=== PATIENT | male | born 1995 | race Hispanic/Latino ===

== ENCOUNTER 2017-05-05 08:45 | Emergency (ER) | payer OTHER ==
[2017-05-05 09:31] LABS: Absolute Lymphocytes (CBC) 1.7 K/uL (0.7-4.9); Absolute Monocytes 1.2 K/uL (0.1-1.3); Absolute Neutrophil 16.5 K/uL (1.8-8.0); Basophils % 0.4 % (0-1.3); Eosinophils % 0.1 % (0-4.4); Hematocrit 48.5 % (39.6-49.0); Lymphocytes % 8.6 % (15.3-44.8); MCH 30.4 pg (27.0-35.0); MCV 88.3 fL (80-100); MPV 7.9 fL (7.6-11.3); Monocytes % 6.4 % (3.3-12.3)
[2017-05-05 09:42] LABS: Glomerular Filtration Rate > 60 mL/min (>60)
[2017-05-05 09:45] LABS: Bicarbonate 27 mEq/L (21-31); Glucose Level 131 mg/dL (65-120); Lipase 14 U/L (22-51); Potassium 3.8 mEq/L (3.6-5.0); Sodium Level 135 mEq/L (135-145)
[2017-05-05] MEDS ORDERED: NA CHLORIDE 0.9% 1,000 ML ONE ×2 (09:50→11:42)
[2017-05-05] MEDS ORDERED: ONDANSETRON 4 MG (ODT) TAB ONE (09:50)
[2017-05-05] MEDS ORDERED: FAMOTIDINE 20 MG/2 ML VIAL IV ONE (09:50)
[2017-05-05 09:52] LABS: ALT/SGPT 84 IU/L (10-60); AST/SGOT 29 IU/L (10-42); Albumin 4.5 g/dL (3.2-5.5); Alkaline Phosphatase 76 IU/L (42-121); Amylase Level 71 U/L (28-100); BUN Blood Urea Nitrogen 11 mg/dL (6-20); Bilirubin Direct 0.2 mg/dL (0-0.2); Bilirubin Total 1.3 mg/dL (0.3-1.2); Creatine Phosphokinase 59 IU/L (22-269); Glomerular Filtration Rate > 90 mL/min (=/>90); Protein, Total 7.9 g/dL (6.0-8.3)
[2017-05-05 09:54] LABS: CKMB Creatine Kinase MB 1.2 ng/ml (0.3-4.0)
[2017-05-05 11:03] LABS: Urine Blood NEGATIVE (NEG); Urine Glucose NEGATIVE (NEG); Urine Protein 2+ (NEG); Urine Specific Gravity 1.025 (1.005-1.030); Urine pH 6.5 (5.0-7.0)
--- NOTE | 2017-05-05 11:18 | RAD REPORT ---
EXAM DESCRIPTION: [facility]05/05/2017 10:29 am CLINICAL HISTORY: Cough COMPARISON: None FINDINGS: The lungs appear clear of acute infiltrate. The heart is normal size IMPRESSION: No acute abnormalities displayed
[2017-05-05 11:40] LABS: Urine Amorphous Sediment TRACE /HPF (NONE SEEN); Urine Bacteria <20 /HPF (NONE SEEN); Urine Culture Reflex Order NOT NEEDED; Urine Mucus 3+ /HPF (NONE SEEN); Urine RBC <5 /HPF (NONE SEEN)
[2017-05-05] MEDS ORDERED: LIDOCAINE VISCOUS 2% SOLN 15 ML UDC ONE (12:21)
[2017-05-05] MEDS ORDERED: MAGNE/ALUM HYDROXD 30 ML UCUP ONE (12:21)
--- NOTE | 2017-05-05 12:26 | EDPHYS ---
Physician Documentation [facility] Name: Ania Hayes III Age: 21 yrs Sex: Male : 1995 Arrival Date: 05/05/2017 Time: 08:50 Bed 15 Private MD: ED Physician Antoine Mcintyre HPI: 05/05 09:05 This 21 yrs old Male presents to ER via Ambulatory with complaints of cp Weakness, Vomiting, Sore Throat. 09:05 The patient presents to the emergency department with weakness of the entire body, cp generalized weakness, that is mild. 09:05 Onset: The symptoms/episode began/occurred this morning. cp 09:05 Associated signs and symptoms: Pertinent positives: headache, sore throat, cough, cp nausea and vomiting, Pertinent negatives: neck stiffness, paresthesias, chest pain, abdominal pain. Severity of symptoms: in the emergency department the symptoms are unchanged despite home interventions. Patient's baseline: Neuro: alert and fully oriented, Motor: no deficits, Ambulation: walks without assistance, Speech: normal. Historical: - Allergies: 08:53 Amoxicillin; lk1 - PMHx: 08:53 None; lk1 - PSHx: 08:53 None; lk1 - Immunization history:: Adult Immunizations up to date. - Social history:: Smoking status: Patient/guardian denies using tobacco. ROS: 09:15 Constitutional: Positive for body aches, chills, poor PO intake, Negative for fever. cp 09:15 Eyes: Negative for injury, pain, redness, and discharge. cp 09:15 ENT: Positive for sore throat, Negative for drainage from ear(s), ear pain, rhinorrhea, cp difficulty swallowing, difficulty handling secretions. 09:15 Neck: Negative for pain with movement, pain at rest, stiffness. 09:15 Cardiovascular: Negative for chest pain, edema, palpitations. 09:15 Respiratory: Positive for cough, Negative for shortness of breath, wheezing. 09:15 Abdomen/GI: Positive for nausea, vomiting, Negative for abdominal pain, diarrhea, constipation, black/tarry stool, rectal bleeding. 09:15 Back: Negative for pain at rest, pain with movement, radiated pain. 09:15 : Negative for urinary symptoms. 09:15 Skin: Negative for cellulitis, rash. 09:15 Neuro: Positive for headache, general weakness, Negative for altered mental status, dizziness, gait disturbance, numbness, syncope. 09:15 All other systems are negative. Exam: 09:22 Constitutional: The patient appears in no acute distress, alert, awake, cp non-diaphoretic, non-toxic, well developed, well nourished. 09:22 Head/Face: Normocephalic, atraumatic. Eyes: Pupils equal round and reactive to light, cp extra-ocular motions intact. Lids and lashes normal. Conjunctiva and sclera are non-icteric and not injected. Cornea within normal limits. Periorbital areas with no swelling, redness, or edema. 09:22 ENT: External ear(s): are unremarkable, Ear canal(s): are normal, clear, TM's: bulging, cp is not appreciated, bilaterally, dullness, bilaterally, erythema, is not appreciated, bilaterally, Nose: is normal, Mouth: Lips: moist, Oral mucosa: moist, Posterior pharynx: Airway: no evidence of obstruction, patent, Tonsils: mild erythema, no enlargement, no exudate, Uvula: midline, non-edematous, no erythema, swelling, is not appreciated, erythema, that is mild, exudate, is not appreciated, Voice: is normal. 09:22 Neck: ROM/movement: is normal, is supple, without pain, no range of motions limitations, no meningismus, no nuchal rigidity, Lymph nodes: no appreciated lymphadenopathy. 09:22 Chest/axilla: Inspection: normal, Palpation: is normal, no crepitus, no tenderness. 09:22 Cardiovascular: Rate: tachycardic, Rhythm: regular, Pulses: Pulses are 2+ in right radial artery and left radial artery. Edema: is not appreciated, JVD: is not appreciated. 09:22 Respiratory: the patient does not display signs of respiratory distress, Respirations: normal, no use of accessory muscles, no retractions, no splinting, no tachypnea, labored breathing, is not present, Breath sounds: are clear throughout, no decreased breath sounds, no stridor, no wheezing. 09:22 Abdomen/GI: Inspection: abdomen appears normal, Bowel sounds: active, all quadrants, Palpation: abdomen is soft and non-tender, in all quadrants, rebound tenderness, is not appreciated, voluntary guarding, is not appreciated, involuntary guarding, is not appreciated. 09:22 Back: pain, is absent, ROM is normal. 09:22 Skin: cellulitis, is not appreciated, no rash present. 09:22 Neuro: Orientation: to person, place \T\ time. Mentation: lucid, able to follow commands, Cerebellar function: is grossly normal, Motor: moves all fours, strength is normal, Sensation: no obvious gross deficits. Vital Signs: 08:53 BP 140 / 69; Pulse 108; Resp 14; Temp 97.8(TE); Pulse Ox 98% on R/A; Weight 108.86 kg lk1 (R); Height 5 ft. 8 in. (172.72 cm) (R); 09:22 BP 136 / 81; Pulse 102; Resp 14; Pulse Ox 99% on R/A; Pain 8/10; ch 10:16 BP 113 / 55; Pulse 113; Resp 16; Pulse Ox 98% on R/A; mh5 11:14 BP 118 / 43; Pulse 103; Resp 15; Pulse Ox 99% on R/A; mh5 12:53 BP 120 / 61; Pulse 98; Resp 14; Temp 98.3; Pulse Ox 99% on R/A; Pain 0/10; ch 08:53 Body Mass Index 36.49 (108.86 kg, 172.72 cm) lk1 MDM: 08:58 Patient medically screened. cp 12:25 Data reviewed: vital signs, nurses notes, lab test result(s), radiologic studies, plain cp films. 12:25 Test interpretation: by ED physician or midlevel provider: ECG, plain radiologic cp studies. Response to treatment: the patient's symptoms have markedly improved after treatment, and as a result, I will discharge patient. 12:25 ED course: VSS. Symptoms improved with IV fluids and meds. Patient tolerating po cp fluids. Will discharge to home for continued monitoring. 05/05 09:01 Order name: Flu; Complete Time: 09:53 ch 05/05 09:01 Order name: Strep; Complete Time: 09:53 ch 05/05 09:15 Order name: Amylase, Serum; Complete Time: 10:09 cp 05/05 09:15 Order name: Basic Metabolic Panel; Complete Time: 09:55 cp 05/05 09:54 Interpretation: Normal except: CL 100; GLUC 131. cp 05/05 09:15 Order name: CBC with Diff; Complete Time: 09:53 cp 05/05 09:54 Interpretation: Normal except: WBC 19.5; RBC 5.50; SARAI% 84.5; LYM% 8.6; NEUT A 16.5. cp 05/05 09:15 Order name: Creatinine for Radiology; Complete Time: 09:53 cp 05/05 09:15 Order name: Hepatic Function; Complete Time: 09:56 cp 05/05 09:56 Interpretation: Normal except: SGPT 84; BILIT 1.3. cp 05/05 09:15 Order name: Lipase; Complete Time: 09:57 cp 05/05 09:57 Interpretation: Abnormal: LIP 14. 05/05 09:15 Order name: Urine Microscopic Only; Complete Time: 12:24 05/05 09:15 Order name: Ckmb; Complete Time: 10:09 cp 05/05 09:15 Order name: CK; Complete Time: 10:09 05/05 09:15 Order name: [place] Screen Profile; Complete Time: 10:28 cp 05/05 10:28 Interpretation: Reviewed. 05/05 09:43 Order name: Throat Culture EDMS 05/05 10:17 Order name: Urine Dipstick--Ancillary (enter results); Complete Time: 11:33 bd 05/05 11:34 Interpretation: UPROT 2+; Reviewed. 05/05 09:15 Order name: IV Saline Lock; Complete Time: 09:29 cp 05/05 09:15 Order name: Labs collected and sent; Complete Time: 09:29 cp 05/05 09:15 Order name: Urine Dipstick-Ancillary (obtain specimen); Complete Time: 11:59 cp 05/05 10:10 Order name: XRAY Chest (1 view); Complete Time: 11:33 cp 05/05 11:02 Order name: PO challenge; Complete Time: 11:35 cp Administered Medications: 09:25 Drug: NS 0.9% 1000 ml Route: IV; Rate: 1 bolus; Site: right antecubital; ch 12:56 Follow up: IV Status: Completed infusion; IV Intake: 1000ml ch 09:25 Drug: Pepcid 20 mg Route: IVP; Site: right antecubital; ch 11:35 Follow up: Response: No adverse reaction ch 09:48 Drug: Zofran 4 mg Route: PO; 11:59 Follow up: Response: No adverse reaction; Marked relief of symptoms 11:21 Drug: NS 0.9% 1000 ml Route: IV; Rate: 1 bolus; Site: right antecubital; ch 11:58 Follow up: IV Status: Completed infusion 12:08 Drug: GI Cocktail without - (Maalox Suspension 30 ml, Lidocaine Liquid 2 % 15 ch ml) Route: PO; 12:55 Follow up: Response: No adverse reaction; Marked relief of symptoms Disposition: 18:21 Co-signature as Attending Physician, Antoine Mcintyre MD. rn Disposition: 05/05/17 12:25 Discharged to Home. Impression: Nausea and vomiting, Cough, Acute pharyngitis. - Condition is Stable. - Discharge Instructions: Nausea and Vomiting, Pharyngitis, Cough, Adult. - Prescriptions for Pepcid 20 mg Oral Tablet - take 1 tablet by ORAL route every 12 hours for 10 days; 20 tablet. Tessalon Perles 100 mg Oral Capsule - take 1 capsule by ORAL route every 8 hours As needed; 15 capsule. promethazine 25 mg Oral Tablet - take 1 tablet by ORAL route every 6 hours As needed; 20 tablet. - Work release form, Family Work Release, Medication Reconciliation Form, Thank You Letter, Antibiotic Education, Prescription Opioid Use form. - Follow up: Private Physician; When: 1 - 2 days; Reason: Recheck today's complaints. - Problem is new. - Symptoms have improved. Signatures: Dispatcher [employer] Brittney Garcia RN RN Antoine Mcintyre MD MD rn Page, Corey, PA PA cp Kluge, Leah, RN RN lk1
--- NOTE | 2017-05-05 12:26 | ER ---
Nurse's Notes [facility] Name: Ania Hayes III Age: 21 yrs Sex: Male : 1995 Arrival Date: 05/05/2017 Time: 08:50 Bed 15 Private MD: Diagnosis: Nausea and vomiting;Cough;Acute pharyngitis Presentation: 05/05 08:52 Presenting complaint: Patient states: "My throat hurts and I have a cough. I can't keep lk1 anything down. I feel weak and tired.". Transition of care: patient was not received from another setting of care. Onset of symptoms was April 21, 2017. Care prior to arrival: None. 08:52 Method Of Arrival: Ambulatory lk1 08:52 Acuity: DENNY 3 lk1 Historical: - Allergies: 08:53 Amoxicillin; lk1 - PMHx: 08:53 None; lk1 - PSHx: 08:53 None; lk1 - Immunization history:: Adult Immunizations up to date. - Social history:: Smoking status: Patient/guardian denies using tobacco. Screenin:22 Abuse screen: Denies threats or abuse. Denies injuries from another. Nutritional ch screening: No deficits noted. Tuberculosis screening: No symptoms or risk factors identified. Fall Risk None identified. Assessment: 09:22 General: Appears in no apparent distress. uncomfortable, Behavior is calm, cooperative, ch appropriate for age. Pain: Complains of pain in head, right arm, left arm, right leg and left leg Pain currently is 8 out of 10 on a pain scale. at worst was 10 out of 10 on a pain scale. Neuro: No deficits noted. Cardiovascular: Heart tones S1 S2 present. Respiratory: Reports cough that is dry, hacking, Airway is patent Respiratory effort is even, unlabored, Breath sounds are clear bilaterally. pt c/o coughing so hard he vomits. GI: Abdomen is obese, Bowel sounds present X 4 quads. Abd is soft and non tender X 4 quads. Reports nausea, vomiting. GI: Reports diarrhea. : No signs and/or symptoms were reported regarding the genitourinary system. EENT: Reports nasal congestion. Derm: Skin is pink, warm \\T\\ dry. 10:30 Reassessment: Patient appears in no apparent distress at this time. No changes from ch previously documented assessment. 11:59 Reassessment: Patient appears in no apparent distress at this time. Patient and/or ch family updated on plan of care and expected duration. Pain level reassessed. Patient is alert, oriented x 3, equal unlabored respirations, skin warm/dry/pink. Patient states feeling better. Patient states symptoms have improved. 12:09 Reassessment: Patient appears in no apparent distress at this time. Patient and/or ch family updated on plan of care and expected duration. Pain level reassessed. Patient is alert, oriented x 3, equal unlabored respirations, skin warm/dry/pink. 12:53 Reassessment: Patient appears in no apparent distress at this time. Patient and/or ch family updated on plan of care and expected duration. Pain level reassessed. Patient is alert, oriented x 3, equal unlabored respirations, skin warm/dry/pink. Patient states feeling better. Patient states symptoms have improved. Vital Signs: 08:53 BP 140 / 69; Pulse 108; Resp 14; Temp 97.8(TE); Pulse Ox 98% on R/A; Weight 108.86 kg lk1 (R); Height 5 ft. 8 in. (172.72 cm) (R); 09:22 BP 136 / 81; Pulse 102; Resp 14; Pulse Ox 99% on R/A; Pain 8/10; ch 10:16 BP 113 / 55; Pulse 113; Resp 16; Pulse Ox 98% on R/A; mh5 11:14 BP 118 / 43; Pulse 103; Resp 15; Pulse Ox 99% on R/A; mh5 12:53 BP 120 / 61; Pulse 98; Resp 14; Temp 98.3; Pulse Ox 99% on R/A; Pain 0/10; ch 08:53 Body Mass Index 36.49 (108.86 kg, 172.72 cm) lk1 ED Course: 08:50 Patient arrived in ED. mr 08:53 Triage completed. lk1 08:53 Arm band placed on right wrist. lk1 08:58 Roberto Narayanan PA is PHCP. cp 08:58 Antoine Mcintyre MD is Attending Physician. cp 09:01 Brittney Douglas, JEFF is Primary Nurse. ch 09:22 No apparent distress. Resting quietly. ch 09:22 Patient has correct armband on for positive identification. Placed in gown. Bed in low ch position. Call light in reach. Side rails up X 1. Adult w/ patient. Pulse ox on. NIBP on. 09:22 No provider procedures requiring assistance completed. Inserted saline lock: 20 gauge ch in right antecubital area, using aseptic technique. Blood collected. 10:29 XRAY Chest (1 view) In Process Unspecified. EDMS 10:31 X-ray completed. Portable x-ray completed in exam room. kw1 12:53 No apparent distress. Resting quietly. ch 12:53 IV discontinued, intact, bleeding controlled, No redness/swelling at site. Pressure ch dressing applied. Administered Medications: 09:25 Drug: NS 0.9% 1000 ml Route: IV; Rate: 1 bolus; Site: right antecubital; ch 12:56 Follow up: IV Status: Completed infusion; IV Intake: 1000ml ch 09:25 Drug: Pepcid 20 mg Route: IVP; Site: right antecubital; ch 11:35 Follow up: Response: No adverse reaction ch 09:48 Drug: Zofran 4 mg Route: PO; ch 11:59 Follow up: Response: No adverse reaction; Marked relief of symptoms ch 11:21 Drug: NS 0.9% 1000 ml Route: IV; Rate: 1 bolus; Site: right antecubital; ch 11:58 Follow up: IV Status: Completed infusion ch 12:08 Drug: GI Cocktail without - (Maalox Suspension 30 ml, Lidocaine Liquid 2 % 15 ch ml) Route: PO; 12:55 Follow up: Response: No adverse reaction; Marked relief of symptoms ch Intake: 12:56 IV: 1000ml; Total: 1000ml. ch Outcome: 12:25 Discharge ordered by MD. cp 12:53 Discharged to home ambulatory, with family. ch 12:53 Condition: improved 12:53 Discharge instructions given to patient, family, Instructed on discharge instructions, follow up and referral plans. medication usage, Demonstrated understanding of instructions, follow-up care, medications, Prescriptions given X 3. 12:56 Patient left the ED. ch Signatures: Dispatcher [employer] EDMS Brittney Douglas RN RN ch Rivera, Maria mr Page, Corey, Niki Gibbs cp, RN RN 1 Juli Diallo [facility] Maite Reyes 1
== END 2017-05-05 12:56 | disposition home or self-care (01) ==
LOC: ER 08:45
DX: Z88.0 Allergy status to penicillin; R05 Cough; J02.9 Acute pharyngitis, unspecified
CPT/HCPCS: 36415; 71045; 80048; 80076; 81003; 81015; 82150; 82550; 82553; 83690; 85025; 86308; 87070; 87081; 87804; 96361; 96374; 99284; J7030

== ENCOUNTER 2017-05-07 11:43 | Emergency (ER) | payer OTHER ==
--- NOTE | 2017-05-07 13:29 | EDPHYS ---
Physician Documentation [facility] Name: Ania Hayes III Age: 21 yrs Sex: Male : 1995 Arrival Date: 05/07/2017 Time: 11:43 Bed 26 Private MD: ED Physician Yuval Crabtree HPI: 05/07 15:31 This 21 yrs old Male presents to ER via Ambulatory with complaints of Sore gs Throat, Headache. 15:31 This 21 yrs old Male presents to ER via Ambulatory with complaints of Sore gs Throat, Headache. 15:31 The patient presents with sore throat. Onset: The symptoms/episode began/occurred 5 gs day(s) ago. Severity of symptoms: At their worst the symptoms were moderate, in the emergency department the symptoms are unchanged. Modifying factors: the symptoms are aggravated by swallowing. Associated signs and symptoms: Pertinent positives: fever. The patient has experienced a previous episode. The patient has been recently seen at the [facility] Emergency Department, this week. Historical: - Allergies: 12:23 Amoxicillin; aj - Home Meds: 12:23 None [Active]; aj - PMHx: 12:23 None; aj - PSHx: 12:23 None; aj - Immunization history:: Adult Immunizations up to date. - Social history:: Smoking status: Patient/guardian denies using tobacco. ROS: 15:31 All other systems are negative. gs Exam: 15:31 Head/Face: Normocephalic, atraumatic. Eyes: Pupils equal round and reactive to light, gs extra-ocular motions intact. Lids and lashes normal. Conjunctiva and sclera are non-icteric and not injected. Cornea within normal limits. Periorbital areas with no swelling, redness, or edema. Neck: Trachea midline, no thyromegaly or masses palpated, and no cervical lymphadenopathy. Supple, full range of motion without nuchal rigidity, or vertebral point tenderness. No Meningismus. Chest/axilla: Normal chest wall appearance and motion. Nontender with no deformity. No lesions are appreciated. Cardiovascular: Regular rate and rhythm with a normal S1 and S2. No gallops, murmurs, or rubs. Normal PMI, no JVD. No pulse deficits. Respiratory: Lungs have equal breath sounds bilaterally, clear to auscultation and percussion. No rales, rhonchi or wheezes noted. No increased work of breathing, no retractions or nasal flaring. Abdomen/GI: Soft, non-tender, with normal bowel sounds. No distension or tympany. No guarding or rebound. No evidence of tenderness throughout. Back: No spinal tenderness. No costovertebral tenderness. Full range of motion. Skin: Warm, dry with normal turgor. Normal color with no rashes, no lesions, and no evidence of cellulitis. MS/ Extremity: Pulses equal, no cyanosis. Neurovascular intact. Full, normal range of motion. Neuro: Awake and alert, GCS 15, oriented to person, place, time, and situation. Cranial nerves II-XII grossly intact. Motor strength 5/5 in all extremities. Sensory grossly intact. Cerebellar exam normal. Normal gait. 15:31 Constitutional: The patient appears alert, awake. 15:31 ENT: Posterior pharynx: swelling, that is mild, erythema, that is moderate. 15:31 ENT: Voice: is normal. 15:31 Respiratory: Breath sounds: stridor, is not appreciated. Vital Signs: 12:23 BP 129 / 78; Pulse 84; Resp 17; Temp 97.7; Pulse Ox 97% on R/A; Weight 108.86 kg; aj Height 5 ft. 8 in. (172.72 cm); Pain 8/10; 12:23 Body Mass Index 36.49 (108.86 kg, 172.72 cm) aj MDM: 13:24 Patient medically screened. 15:31 Differential diagnosis: group A strep tonsillitis, pharyngitis, upper respiratory gs infection. Data reviewed: vital signs, nurses notes. Response to treatment: the patient's symptoms have mildly improved after treatment, and as a result, I will discharge patient. 05/07 12:25 Order name: Strep 05/07 12:26 Order name: Group A Streptococcus Rapid Sc; Complete Time: 13:17 EDMS 05/07 12:53 Order name: Throat Culture EDMS Administered Medications: No medications were administered Disposition: 05/07/17 13:29 Discharged to Home. Impression: Streptococcal pharyngitis. - Condition is Stable. - Discharge Instructions: Pharyngitis, Strep Throat. - Prescriptions for Zithromax Z- Luis 250 mg Oral Tablet - take 1 tablet by ORAL route as directed for 5 days Day 1 - take two (2) tablets one time. Day 2, 3, 4 , 5 take one (1) tablet once daily.; 6 tablet. - Medication Reconciliation Form, Thank You Letter, Antibiotic Education, Prescription Opioid Use, Work release form form. - Follow up: Private Physician; When: 2 - 3 days; Reason: Re-evaluation by your physician. Signatures: Dispatcher [employer] Kylie Koehler RN Yuval James MD MD gs Maty Hugo RN RN kr2
--- NOTE | 2017-05-07 13:29 | ER ---
Nurse's Notes [facility] Name: nAia Hayes III Age: 21 yrs Sex: Male : 1995 Arrival Date: 05/07/2017 Time: 11:43 Bed 26 Private MD: Diagnosis: Streptococcal pharyngitis Presentation: 05/07 12:22 Presenting complaint: Patient states: Reports sore throat. Tonsils red and enlarged aj bilaterally. Transition of care: patient was not received from another setting of care. Onset of symptoms was May 04, 2017. Care prior to arrival: None. 12:22 Method Of Arrival: Ambulatory 12:22 Acuity: DENNY 4 aj Triage Assessment: 12:23 General: Appears in no apparent distress. comfortable, Behavior is calm, cooperative, aj appropriate for age. Pain: Complains of pain in left aspect of posterior pharynx and right aspect of posterior pharynx Pain currently is 8 out of 10 on a pain scale. EENT: Throat is reddened has enlarged tonsils bilaterally Reports pain when swallowing. Respiratory: Airway is patent Respiratory effort is even, unlabored, Respiratory pattern is regular, symmetrical. Derm: Skin is intact, is healthy with good turgor, Skin is pink, warm \T\ dry. normal. Historical: - Allergies: 12:23 Amoxicillin; aj - Home Meds: 12:23 None [Active]; aj - PMHx: 12:23 None; aj - PSHx: 12:23 None; aj - Immunization history:: Adult Immunizations up to date. - Social history:: Smoking status: Patient/guardian denies using tobacco. Screenin:58 Abuse screen: Denies threats or abuse. Denies injuries from another. Nutritional kr2 screening: No deficits noted. Tuberculosis screening: No symptoms or risk factors identified. Fall Risk None identified. Assessment: 13:30 General: Appears in no apparent distress. comfortable, well groomed, well developed, kr2 well nourished, Behavior is calm, cooperative, appropriate for age. Pain: Complains of pain in throat Pain does not radiate. Pain currently is 3 out of 10 on a pain scale. Quality of pain is described as tender. Neuro: Level of Consciousness is awake, alert, obeys commands, Oriented to person, place, time, situation, Appropriate for age. Cardiovascular: Capillary refill < 3 seconds in bilateral fingers Patient's skin is warm and dry. Respiratory: Airway is patent Respiratory effort is even, unlabored, Respiratory pattern is regular, symmetrical, Breath sounds are clear bilaterally. GI: Abdomen is flat, non-distended. : No signs and/or symptoms were reported regarding the genitourinary system. EENT: Throat is reddened. Derm: Skin is intact, is healthy with good turgor, Skin is pink, warm \T\ dry. Vital Signs: 12:23 BP 129 / 78; Pulse 84; Resp 17; Temp 97.7; Pulse Ox 97% on R/A; Weight 108.86 kg; aj Height 5 ft. 8 in. (172.72 cm); Pain 8/10; 12:23 Body Mass Index 36.49 (108.86 kg, 172.72 cm) ED Course: 11:43 Patient arrived in ED. as 12:23 Triage completed. aj 12:23 Arm band placed on right wrist. Patient placed in waiting room, Patient notified of wait time. Labs ordered per protocol. 13:16 Lauren Dur[facility]-C is [facility]. kb 13:16 Yuval Crabtree MD is Attending Physician. kb 13:43 Maty Hugo, JEFF is Primary Nurse. kr2 13:58 Patient has correct armband on for positive identification. Bed in low position. Call kr2 light in reach. Side rails up X 1. Pulse ox on. NIBP on. Door closed. Warm blanket given. Head of bed elevated. 13:59 No provider procedures requiring assistance completed. Patient did not have IV access kr2 during this emergency room visit. Administered Medications: No medications were administered Outcome: 13:29 Discharge ordered by . 13:59 Discharged to home ambulatory, with friend. kr2 13:59 Condition: good 13:59 Discharge instructions given to patient, Instructed on discharge instructions, follow up and referral plans. medication usage, Demonstrated understanding of instructions, follow-up care, medications, Prescriptions given X 1. 14:00 Patient left the ED. kr2 Signatures: Lauren Durán FNP-C FNP-Ckb Myers, Amanda, RN RN aj Martinez, Amelia as Yuval Crabtree MD MD Maty Hugo RN RN kr2
== END 2017-05-07 14:00 | disposition home or self-care (01) ==
LOC: ER 11:43
DX: J02.0 Streptococcal pharyngitis (principal); Z88.0 Allergy status to penicillin
CPT/HCPCS: 87070; 87081; 99283

== ENCOUNTER 2017-06-01 08:54 | Emergency (ER) | payer OTHER ==
[2017-06-01] MEDS ORDERED: IBUPROFEN 200 MG TAB PO ONE (11:25)
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
== END 2017-06-01 12:36 | disposition home or self-care (01) ==
LOC: ER 08:54
DX: S13.4XXA Sprain of ligaments of cervical spine, initial encounter (principal); S30.1XXA Contusion of abdominal wall, initial encounter; V49.49XA Driver injured in collision with other motor vehicles in traffic accident, initial encounter; Z88.1 Allergy status to other antibiotic agents
CPT/HCPCS: 70450; 71250; 72125; 99284

== ENCOUNTER 2017-06-18 14:25 | Emergency (ER) | payer OTHER ==
--- NOTE | 2017-06-18 15:23 | ER ---
Nurse's Notes [facility] Name: Ania Hayes III Age: 21 yrs Sex: Male : 1995 Arrival Date: 06/18/2017 Time: 14:28 Bed 10 Private MD: Diagnosis: Muscle spasm of back Presentation: 06/18 14:39 Presenting complaint: Patient states: Lower back pain for 2 weeks, seen in this ER for aj same complaint. Set appointment for follow up with PCP for next week. Transition of care: patient was not received from another setting of care. Onset of symptoms was June 01, 2017. Initial Sepsis Screen: Does the patient meet any 2 criteria? No. Patient's initial sepsis screen is negative. Does the patient have a suspected source of infection? No. Patient's initial sepsis screen is negative. Care prior to arrival: None. 14:39 Method Of Arrival: Ambulatory aj 14:39 Acuity: DENNY 5 aj Triage Assessment: 14:40 General: Appears in no apparent distress. comfortable, Behavior is calm, cooperative, aj appropriate for age. Pain: Complains of pain in low back area and mid back area Pain currently is 10 out of 10 on a pain scale. Neuro: Level of Consciousness is awake, alert, obeys commands, Oriented to person, place, time, situation, Appropriate for age. Respiratory: Airway is patent Respiratory effort is even, unlabored, Respiratory pattern is regular, symmetrical. Derm: Skin is intact, is healthy with good turgor, Skin is pink, warm \T\ dry. normal. Musculoskeletal: Circulation, motion, and sensation intact. Range of motion: intact in all extremities. Historical: - Allergies: 14:40 Amoxicillin; aj - Home Meds: 14:40 None [Active]; aj - PMHx: 14:40 None; aj - PSHx: 14:40 None; aj - Immunization history:: Adult Immunizations up to date. - Social history:: Smoking status: Patient/guardian denies using tobacco. Screenin:46 Abuse screen: Denies threats or abuse. Denies injuries from another. Nutritional ed1 screening: No deficits noted. Tuberculosis screening: No symptoms or risk factors identified. Fall Risk None identified. Assessment: 14:46 General: Appears in no apparent distress. Behavior is calm, cooperative. Pain: ed1 Complains of pain in mid back area and low back area Pain does not radiate. Pain currently is 10 out of 10 on a pain scale. Quality of pain is described as aching, Pain began over 1 week ago Is continuous. Neuro: Level of Consciousness is awake, alert, obeys commands, Oriented to person, place, time, situation, Crime Victim Specialist are equal bilaterally Moves all extremities. Full function Gait is steady. Cardiovascular: Denies chest pain, Heart tones S1 S2 present. Respiratory: Airway is patent Respiratory effort is even, unlabored, Respiratory pattern is regular, symmetrical, Breath sounds are clear bilaterally. GI: No signs and/or symptoms were reported involving the gastrointestinal system. : No signs and/or symptoms were reported regarding the genitourinary system. EENT: No signs and/or symptoms were reported regarding the EENT system. Derm: Skin is intact, is healthy with good turgor, Skin is pink, warm \T\ dry. Musculoskeletal: Circulation, motion, and sensation intact. Range of motion: intact in all extremities, Reports pain in mid back area and low back area. 14:46 Reassessment: I agree with assessment completed by RICK Marks . aa5 15:32 Reassessment: Patient appears in no apparent distress at this time. No changes from ed1 previously documented assessment. Patient and/or family updated on plan of care and expected duration. Pain level reassessed. Patient is alert, oriented x 3, equal unlabored respirations, skin warm/dry/pink. Patient states symptoms have not improved. Vital Signs: 14:40 BP 132 / 69; Pulse 81; Resp 16; Temp 98.6; Pulse Ox 98% on R/A; Weight 108.86 kg; aj Height 5 ft. 8 in. (172.72 cm); Pain 10/10; 15:32 BP 132 / 85; Pulse 66; Resp 17; Pulse Ox 100% on R/A; Pain 10/10; ed1 14:40 Body Mass Index 36.49 (108.86 kg, 172.72 cm) aj ED Course: 14:28 Patient arrived in ED. sb2 14:40 Triage completed. aj 14:40 Arm band placed on right wrist. Patient placed in an exam room. aj 14:44 Gabriele Londono NP is PHCP. pm1 14:44 Roberto Arce MD is Attending Physician. pm1 14:46 Selina Danielle LVN is Primary Nurse. ed1 14:46 Patient has correct armband on for positive identification. Call light in reach. ed1 15:32 No provider procedures requiring assistance completed. Patient did not have IV access ed1 during this emergency room visit. Administered Medications: No medications were administered Outcome: 15:23 Discharge ordered by MD. pm1 15:32 Discharged to home ambulatory. ed1 15:32 Condition: good 15:32 Discharge instructions given to patient, Instructed on discharge instructions, follow up and referral plans. medication usage, Demonstrated understanding of instructions, follow-up care, medications, Prescriptions given X 3. 15:33 Patient left the ED. ed1 Signatures: Kylie Kan, RN RN Donna Liao, RN RN aa5 Selina Danielle LVN LVN ed1 Gabriele Londono, [employer]URING TECH[employer]Y ANALYST pm1 Estephania Juan sb2
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
== END 2017-06-18 15:33 | disposition home or self-care (01) ==
LOC: ER 14:25
DX: M62.830 Muscle spasm of back (principal); Z88.1 Allergy status to other antibiotic agents
CPT/HCPCS: 99282